=== PATIENT | female | born 1995 | race Caucasian/White ===

== ENCOUNTER 2019-11-01 14:36 | Emergency (ER) | payer SELFPAY ==
[2019-11-01 14:43] VITALS: BP 130/78; PULSE 107; RESP 17; TEMP 36.6; O2SAT 99; BMI 27.4
--- NOTE | 2019-11-01 15:14 | W.ED.GENADLT ---
HPI - General Adult General: Chief complaint: General Medical Stated complaint: SPIDER BITE Time Seen by Provider: 11/01/19 14:44 History of Present Illness: HPI narrative: Patient noticed what she believes to be a spider bite on the posterior aspect of her right thigh. Tiny eschar in the center is 1 mm in diameter there is a 5 and half centimeter diameter area of erythema and warmth consistent with cellulitis. Onset (ago): hour(s) Location: lower extremity Radiation: non-radiation Severity: mild Relieving factors: none Exacerbating factors: none Associated symptoms: Reports no associated symptoms Review of Systems General: Reports: 10 or more systems reviewed and unremarkable except in HPI and below PFSH ED PFSH: Social History Smoking and tobacco status: former smoker Physical Exam Const: COMMON NORMALS: no acute distress, healthy appearing and well nourished GENERAL APPEARANCE: cooperative and well developed HENMT: COMMON NORMALS: normocephalic and atraumatic HEAD & SCALP: normal to inspection, normocephalic and atraumatic Eye: GENERAL EYE: appearance normal, both eyes and all related structures Neck/C-Spine: COMMON NORMALS: full ROM, no lymphadenopathy and no meningeal signs GENERAL: Yes normal visual inspection CERVICAL SPINE: Yes cervical ROM normal and Yes normal cervical lordosis Chest: COMMONS NORMALS: normal inspection of the chest and normal palpation of entire chest wall Resp: COMMON NORMALS: normal respiratory effort, clear to auscultation bilaterally and percussion normal AUSCULTATION: clear to auscultation bilaterally PERCUSSION: percussion normal Cardio: COMMON NORMALS: regular rate, regular rhythm, S1 normal heart sound present and S2 normal heart sound present JUGULAR VENOUS DISTENTION: no JVD PALPATION: normal PMI RATE: regular rate RHYTHM: regular rhythm HEART SOUNDS: S1 normal heart sound present and S2 normal heart sound present GI: COMMON NORMALS: Soft to palpation and No hepatosplenomegaly present INSPECTION: Yes normal to inspection PALPATION: Yes Soft to palpation and Yes No hepatosplenomegaly present PERCUSSION: normal to percussion : COMMON NORMALS: Yes no CVA tenderness BLADDER/KIDNEY EXAM: Yes no CVA tenderness Back/Pelvis: COMMON NORMALS: no CVA tenderness, thoracic and lumbar spine normal to inspection and thoraco-lumbar ROM normal Extremity: COMMON NORMALS: normal to inspection, full ROM and capillary refill normal Neuro: MENINGEAL SIGNS: Yes no meningeal signs Skin: COMMON NORMALS: turgor normal GENERAL SKIN EXAM: elasticity normal and turgor normal LESIONS: lesion noted (spider bite posterior right thigh) RASHES: no rashes TRAUMA: no lacerations or abrasions HAIR: normal NAILS: normal Course Vital Signs: Vital signs: Vital Signs Temperature 97.8 F 11/01/19 14:43 Pulse Rate 107 H 11/01/19 14:43 Respiratory Rate 17 11/01/19 14:43 Blood Pressure 130/78 11/01/19 14:43 Pulse Oximetry 99 11/01/19 14:43 Discharge Plan Discharge Patient Disposition: Home, Self-Care Clinical Impression: Spider bite Qualifiers: Encounter type: initial encounter Injury intent: undetermined intent Qualified Code(s): T63.304A - Toxic effect of unspecified spider venom, undetermined, initial encounter Cellulitis Qualifiers: Site of cellulitis: extremity Site of cellulitis of extremity: lower extremity Laterality: right Qualified Code(s): L03.115 - Cellulitis of right lower limb Condition: Stable Prescriptions: New Augmentin 875-125 mg tablet 1 tab PO BID Qty: 20 RF: 0 Discharge Orders: Discharge Order (Routine); Ordered 11/01/19 Ordered By: Parish Flores Referrals: Fracisco Loza MD [Primary Care Provider] - Coding Level of Care Code ED [place] [employer] Supervisor for Chg Fwd Exam Comprehensive
[2019-11-01] MEDS: ceFAZolin 1,000 mg SDV 1000 MG IM (15:41)
[2019-11-01 16:09] VITALS: BP 112/70; PULSE 77; RESP 19; O2SAT 99
== END 2019-11-01 16:12 | disposition home or self-care (01) ==
PROVIDERS: Emergency Provider Family Medicine; Family Provider Family Medicine; PCP Family Medicine
DX: T63.301A Toxic effect of unspecified spider venom, accidental (unintentional), initial encounter (principal); L03.115 Cellulitis of right lower limb; Z87.891 Personal history of nicotine dependence
CPT/HCPCS: 12345; 96372; 99281; 99283; J0690

== ENCOUNTER → 2020-01-28 12:22 | Outpatient (BNVA) | payer OTHER, SELFPAY | PROVIDERS: Family Provider Family Medicine; PCP Family Medicine; Visit Provider Nurse Practitioner Family | DX: J06.9 Acute upper respiratory infection, unspecified (principal); Z11.59 Encounter for screening for other viral diseases | CPT/HCPCS: 87635 ==

== ENCOUNTER → 2020-05-16 15:26 | Outpatient (BNVA) | payer SELFPAY | PROVIDERS: Family Provider Family Medicine; PCP Family Medicine; Visit Provider Nurse Practitioner Family | DX: Z20.828 Contact with and (suspected) exposure to other viral communicable diseases (principal); J06.9 Acute upper respiratory infection, unspecified | CPT/HCPCS: 87635 ==

== ENCOUNTER 2020-10-30 17:50 | Emergency (ER) | payer SELFPAY ==
[2020-10-30 18:03] VITALS: BP 151/85; PULSE 124; RESP 16; TEMP 36.6; O2SAT 96; BMI 30.5
[2020-10-30 19:08] LABS: Basophils # 0.1 10^3/uL (0.0-0.1); Basophils % 0.6 %; Eosinophils # 0.1 10^3/uL (0.0-0.8); Eosinophils % 0.9 %; Hemoglobin 12.8 g/dL (11.5-15.3); Lymphocytes # 2.2 10^3/uL (0.8-4.8); Lymphocytes % 19.2 %; Mean Corpuscular HGB Conc 33.7 g/dL (30.0-36.0); Mean Corpuscular Hemoglobin 30.5 pg (28.0-34.0); Mean Corpuscular Volume 90.7 fL (81-99); Mean Platelet Volume 8.7 fL (7.4-10.4); Monocytes # 0.7 10^3/uL (0.2-0.9); Monocytes % 5.7 %; Neutrophils # 8.56 10^3/uL (1.8-7.7); Neutrophils % 73.3 %; Nucleated Red Blood Cells % 0 %; Platelet Count 395 10^3/cmm (130-400); Red Blood Count 4.19 10^6/uL (4.1-5.3); Red Cell Distribution Width 11.6 % (12.1-15.1); White Blood Count 11.7 10^3/uL (4.0-10.0)
== END 2020-10-30 20:04 ==
LOC: ER 17:58
PROVIDERS: Emergency Medicine; PCP Family Medicine
DX: Z53.21 Procedure and treatment not carried out due to patient leaving prior to being seen by health care provider (principal)
CPT/HCPCS: 36415; 84702; 85025; 86850; 86900

== ENCOUNTER 2020-10-30 22:09 | Emergency (ER) | payer SELFPAY ==
--- NOTE | 2020-10-30 22:13 | USR_ITS ---
PROCEDURE INFORMATION: Exam: US , Limited Exam date and time: 10/30/2020 10:13 PM Age: 24 years old Clinical indication: complicated by abdominal or pelvic pain; Lower; First trimester; Gestational age or lmp: No fetus seen; ; Patient HX: PT bleeding heavily and passing large clots. Ser pg semi-qnt tonite here is 760.8 miu/ml; Additional info: Threatened miscariage TECHNIQUE: Imaging protocol: Real-time ultrasound of the maternal uterus with image documentation. Exam focused on the clinical indication. COMPARISON: US [facility] [place] OB > 14 weeks 01/18/2015 3:31 PM FINDINGS: Gestation: There is no evidence for an intrauterine gestation. MATERNAL: Uterus: The uterus measures 9.1 x 4.8 x 5.8 cm. The endometrial stripe measures 1.8 cm. There is heterogeneous material seen within the endometrial and endocervical canal possibly representing blood clots and/or debris. The patient has a positive seen quantitative beta HCG level of 761 mIU units per mL. These findings suggest a spontaneous in progress. Cervix: The cervix is open and measures 3 cm in length, the endocervical canal measures 1.7 cm. Right adnexa: The right ovary measures 1.5 x 2.0 x 2.0 cm. Vascular flow is demonstrated within the right ovary with color Doppler and duplex waveform sonography. PSV 26.1 cm/s, RI 0.62. Left adnexa: Left ovary measures 2.3 x 2.0 x 2.7 cm. Vascular flow is demonstrated within the left ovary with color Doppler and duplex waveform sonography. PSV 48.6 cm/s, RI 0.41. US/US OB lmt with transvaginal IMPRESSION: Clotted blood and debris present within the a dilated endometrial and endocervical canal, findings suggesting spontaneous in progress.
[2020-10-30 22:46] LABS: Basophils # 0.1 10^3/uL (0.0-0.1); Basophils % 0.4 %; Eosinophils % 0.3 %; Hematocrit 33.7 % (37.0-47.0); Hemoglobin 11.3 g/dL (11.5-15.3); Lymphocytes # 1.4 10^3/uL (0.8-4.8); Lymphocytes % 9.6 %; Mean Corpuscular HGB Conc 33.5 g/dL (30.0-36.0); Mean Corpuscular Hemoglobin 30.9 pg (28.0-34.0); Mean Corpuscular Volume 92.1 fL (81-99); Monocytes # 0.6 10^3/uL (0.2-0.9); Monocytes % 3.9 %; Neutrophils # 12.41 10^3/uL (1.8-7.7); Neutrophils % 85.5 %; Nucleated Red Blood Cells % 0 %; Platelet Count 357 10^3/cmm (130-400); Red Blood Count 3.66 10^6/uL (4.1-5.3); Red Cell Distribution Width 11.7 % (12.1-15.1); White Blood Count 14.5 10^3/uL (4.0-10.0)
[2020-10-30 23:26] VITALS: BP 116/80; PULSE 99; RESP 18; TEMP 36.4; O2SAT 99; BMI 29.7
[2020-10-31] MEDS: sodium chloride 0.9% 1,000 ML 999 ML IV (00:56)
[2020-10-31] MEDS: miSOPROStol 200 mcg Tablet 600 MCG PO (00:56)
[2020-10-31] MEDS: ondansetron 2 mg/ML SDV 2 mL 4 MG IVP (00:59)
[2020-10-31] MEDS: morphine 4 mg/mL SDV 1 mL IVP (01:00)
--- NOTE | 2020-10-31 01:00 | ED_ITS ---
HPI - Female Genitourinary General: Chief complaint: Vaginal Bleeding Stated complaint: PASSING OUT Time Seen by Provider: 10/31/20 00:48 Source: patient Mode of arrival: ambulatory Limitations: no limitations History of Present Illness: HPI Narrative: 24-year-old female who states that she had tested positive for 2 weeks ago. States she started having heavy bleeding today. States she is passed multiple clots and having lower abdominal cramping. She states she has felt lightheaded as well. She denies any worse improving factors. Denies any fevers. This is her second she had no problems with her first . Associated symptoms: Deny abdominal pain, headache(s) or nausea Review of Systems Const: Denies: fever(s), chills, body aches or change in appetite Eyes: Denies: blurry vision or eye discomfort ENMT: Denies: throat pain or dental pain Card: Denies: chest pain Resp: Denies: dyspnea GI: Denies: abdominal pain, nausea, vomiting or diarrhea : Reports: vaginal bleeding Musc: Denies: neck pain or back pain Skin/Breast: Denies: rash Neuro: Denies: headache(s) Psych: Denies: depression Jed/Lymph: Denies: easy bruising All/Imm: Denies: urticaria PFSH ED PFSH: Social History Smoking and tobacco status: former smoker Physical Exam Const: COMMON NORMALS: no acute distress, patient oriented x3 and healthy appearing HENMT: COMMON NORMALS: normocephalic and atraumatic HEAD & SCALP: normocephalic and atraumatic Eye: COMMON NORMALS: Equal, round and reactive pupils present and EOMs intact bilaterally PUPIL: Yes Equal, round and reactive pupils present Neck/C-Spine: COMMON NORMALS: full ROM and supple Chest: COMMONS NORMALS: normal inspection of the chest and normal palpation of entire chest wall Resp: COMMON NORMALS: normal respiratory effort, No retractions, No use of accessory muscles and clear to auscultation bilaterally AUSCULTATION: clear to auscultation bilaterally Cardio: COMMON NORMALS: regular rate, regular rhythm and No murmurs present (Cardio) RATE: regular rate RHYTHM: regular rhythm GI: COMMON NORMALS: Normal to inspection, nondistended, normoactive bowel sounds present, Soft to palpation, non-tender and no masses PALPATION: Yes Soft to palpation : OTHER: Large blood clot stuck in the cervix that was removed with forceps. Minimal bleeding after the clot was removed Extremity: COMMON NORMALS: normal to inspection and full ROM Neuro: COMMON NORMALS: patient oriented x3, moves all extremities and no focal motor deficits Psych: COMMON NORMALS: mental status grossly normal, Normal thought process present and cooperative THOUGHT PROCESS: Normal thought process present Skin: COMMON NORMALS: no rashes or lesions noted and no wounds GENERAL SKIN EXAM: no rashes or lesions noted Course Vital Signs: Vital signs: Vital Signs Temperature 97.6 F 10/30/20 23:26 Pulse Rate 75 10/31/20 01:57 Respiratory Rate 18 10/31/20 01:57 Blood Pressure 125/85 10/31/20 01:57 Pulse Oximetry 98 10/31/20 01:57 MDM - Female MDM Narrative: Medical decision making narrative: Patient presents here with likely miscarriage. Was able to remove the clot from the cervix. Her bleeding is since stopped. Her hemoglobin here is stable and her vital signs are stable. She is to follow-up with PCP in 2 to 4 days return if worsening. She understands agrees to plan. Lab Data: Labs: Lab Results 10/30/20 10/31/20 Range/Units 22:29 01:55 WBC 14.5 H (4.0-10.0) 10^3/ uL RBC 3.66 L (4.1-5.3) 10^6/u L Hgb 11.3 L 11.1 L (11.5-15.3) g/dL Hct 33.7 L 32.9 L (37.0-47.0) % MCV 92.1 (81-99) fL MCH 30.9 (28.0-34.0) pg MCHC 33.5 (30.0-36.0) g/dL RDW 11.7 L (12.1-15.1) % Plt Count 357 (130-400) 10^3/c mm MPV 9.0 (7.4-10.4) fL Neut % (Auto) 85.5 % Lymph % (Auto) 9.6 % [place] % (Auto) 3.9 % Eos % (Auto) 0.3 % Baso % (Auto) 0.4 % Neut # (Auto) 12.41 H (1.8-7.7) 10^3/u L Lymph # (Auto) 1.4 (0.8-4.8) 10^3/u L [place] # (Auto) 0.6 (0.2-0.9) 10^3/u L Eos # (Auto) 0.0 (0.0-0.8) 10^3/u L Baso # (Auto) 0.1 (0.0-0.1) 10^3/u L Nucleated RBC % (a uto) 0 % Nucleated RBCs # 0.0 /100WBC Imaging Data: US OB: Attestation: I personally reviewed and interpreted this imaging study as follows: Radiologist's impression: [address] [address] Ultrasound Report Signed with Addenda Patient: Felecia Figueroa Unit #: [id number] : 1995 Age/Sex: 24 / F ADM Date: 10/30/20 Loc: ER Room/Bed: Attending Dr: Ordering Provider/Ordering MD: Liu Rodas MD Date of Service: 10/30/20 Procedure(s): US OB lmt with transvaginal Accession Number(s): [id number] Report Number: [id number] ADDENDUM US/US OB lmt with transvaginal CRITICAL RESULT: THIS REPORT CONTAINS FINDINGS THAT MAY BE CRITICAL TO PATIENT CARE. The findings were verbally communicated via telephone conference with LIU Jean at 12:40 AM CDT on 10/31/2020. The findings were acknowledged and understood. Addendum Dictated By: Billy Barber MD Addendum Signed By: Billy Barber MD Signed Date/Time: 10/31/2040 Addendum Cosigned By: PROCEDURE INFORMATION: Exam: US , Limited Exam date and time: 10/30/2020 10:13 PM Age: 24 years old Clinical indication: complicated by abdominal or pelvic pain; Lower; First trimester; Gestational age or lmp: No fetus seen; ; Patient HX: PT bleeding heavily and passing large clots. Ser pg semi-qnt tonite here is 760.8 miu/ml; Additional info: Threatened miscariage TECHNIQUE: Imaging protocol: Real-time ultrasound of the maternal uterus with image documentation. Exam focused on the clinical indication. [place]: [place] [facility] [place] 14 weeks [place]18/2015 3:31 PM FINDINGS: Gestation: There is no evidence for an intrauterine gestation. MATERNAL: Uterus: The uterus measures 9.1 x 4.8 x 5.8 cm. The endometrial stripe measures 1.8 cm. There is heterogeneous material seen within the endometrial and endocervical canal possibly representing blood clots and/or debris. The patient has a positive seen quantitative beta HCG level of 761 mIU units per mL. These findings suggest a spontaneous in progress. Cervix: The cervix is open and measures 3 cm in length, the endocervical canal measures 1.7 cm. Right adnexa: The right ovary measures 1.5 x 2.0 x 2.0 cm. Vascular flow is demonstrated within the right ovary with color Doppler and duplex waveform sonography. PSV 26.1 cm/s, RI 0.62. Left adnexa: Left ovary measures 2.3 x 2.0 x 2.7 cm. Vascular flow is demonstrated within the left ovary with color Doppler and duplex waveform sonography. PSV 48.6 cm/s, RI 0.41. US/US OB lmt with transvaginal IMPRESSION: Clotted blood and debris present within the a dilated endometrial and endocervical canal, findings suggesting spontaneous in progress. Dictated By: Billy Barber MD Signed By: Billy Barber MD Signed Date/Time: 10/31/20 0038 Discharge Plan Discharge Patient Disposition: Home Clinical Impression: Incomplete Condition: Stable Prescriptions: No Action omeprazole 40 mg capsule,delayed release(DR/EC) 40 mg PO DAILY Qty: 14 RF: 0 Discharge Orders: Discharge ED (Routine); Ordered 10/31/20 Ordered By: Liu Rodas Referrals: Fracisco Loza MD [Primary Care Provider] - Discharge Diet: Advance as tolerated Discharge Activity: Resume usual activity Patient Instructions: Spontaneous Miscarriage (ED) Coding Level of Care Code ED [facility] Manager for Chg Fwd Exam Comprehensive
[2020-10-31 01:01] VITALS: BP 124/93; PULSE 94; RESP 16; O2SAT 100
[2020-10-31 01:57] VITALS: BP 125/85; PULSE 75; RESP 18; O2SAT 98
[2020-10-31 01:58] LABS: Hematocrit 32.9 % (37.0-47.0); Hemoglobin 11.1 g/dL (11.5-15.3)
[2020-10-31 02:26] VITALS: BP 114/75; PULSE 88; RESP 18; O2SAT 98
== END 2020-10-31 02:27 | disposition home or self-care (01) ==
PROVIDERS: Emergency Provider Emergency Medicine; PCP Family Medicine
DX: O03.4 Incomplete spontaneous abortion without complication (principal); Z87.891 Personal history of nicotine dependence
CPT/HCPCS: 36415; 76815; 76817; 85014; 85018; 85025; 96361; 96374; 96375; 99283; E0352; J2270; J2405; J7030

== ENCOUNTER → 2021-01-13 12:15 | Outpatient (BNVA) | payer SELFPAY | PROVIDERS: PCP Family Medicine; Visit Provider Nurse Practitioner Family | DX: Z20.822 Contact with and (suspected) exposure to COVID-19 (principal) | CPT/HCPCS: 87426 ==

== ENCOUNTER 2022-07-12 07:33 | Emergency (ER) | payer SELFPAY ==
[2022-07-12 07:45] VITALS: BP 150/101; PULSE 105; RESP 16; TEMP 37; O2SAT 99; BMI 29.0
--- NOTE | 2022-07-12 07:45 | PC.NURSE ---
PT ARRIVES TO ED DUE TO FALL AND INJURY OF RIGHT WRIST. PT STATES SHE FELL BACKWARDS AND HURT HER WRIST. PT ARRIVES WITH SOME OBVIOUS DEFORMITY TO RIGHT WRIST ACCOMPANIED BY SWELLING. DISTAL COLOR IS NORMAL. RIGHT RADIAL PULSE PRESENT. CAP REFILL BRISK
--- NOTE | 2022-07-12 07:51 | XR_ITS ---
WS: [id number] Exam: XR forearm RT 2V [id number] Date/Time of Exam: 07/12/2022 7:55 AM Reason For Exam: fall with pain and swelling There is a transverse nondisplaced fracture of the distal radius. The ulna is intact. Soft tissues ar e unremarkable. XR/XR forearm RT 2V [id number] IMPRESSION: 1. Nondisplaced fracture of the distal radius.
--- NOTE | 2022-07-12 07:51 | XR_ITS ---
WS: [id number] Exam: XR wrist RT min 3V* [id number] Date/Time of Exam: 07/12/2022 7:55 AM Reason For Exam: fall with wrist pain There is a transverse nondisplaced fracture of the distal radius. There is also a cortical buckling f racture at the base of the ulnar styloid which is nondisplaced. No dislocation. Normal soft tissues. XR/XR wrist RT min 3V* [id number] IMPRESSION: 1. Nondisplaced fractures of the distal radius and ulna.
[2022-07-12 08:11] VITALS: BP 150/101; PULSE 108; RESP 23; O2SAT 100
[2022-07-12] MEDS: HYDROcodone-acetaminophen 5-325 mg Tablet 1 TAB PO (08:28)
--- NOTE | 2022-07-12 08:43 | ED_ITS ---
Documented by User: JOSE ELIAS Bee 07/12/22 09:09 HPI - Extremity Problem General: Chief complaint: Extremity Injury, Upper Stated complaint: Right wrist injury Time Seen by Provider: 07/12/22 07:37 History of Present Illness: Patient is in for right wrist injury. She reports that she slipped on her deck this morning and fell onto her right hand outstretched. She reports significant pain at the distal forearm wrist level. Patient reports that she is up-to-date on tetanus vaccination within the past 1 to 2 years Associated symptoms: Deny chest pain or fever(s) Review of Systems Const: Denies: fever(s) or chills Card: Denies: chest pain or palpitations Resp: Denies: dyspnea, productive cough or non-productive cough GI: Denies: abdominal pain, nausea or vomiting Musc: Reports: extremity pain and joint pain COUNT INCLUDES THE [facility] ED PFSH: Social History Smoking and tobacco status: former smoker Physical Exam Const: COMMON NORMALS: patient oriented x3 and alert OTHER: Patient is in obvious pain Neck/C-Spine: COMMON NORMALS: no JVD Resp: COMMON NORMALS: normal respiratory effort, No use of accessory muscles and clear to auscultation bilaterally AUSCULTATION: clear to auscultation bilaterally Cardio: COMMON NORMALS: no JVD, regular rate, regular rhythm, S1 normal heart sound present, S2 normal heart sound present and No murmurs present (Cardio) RATE: regular rate RHYTHM: regular rhythm HEART SOUNDS: S1 normal heart sound present and S2 normal heart sound present Extremity: NARRATIVE EXTREMITY EXAM: Swelling noted radial aspect right wrist distal forearm. No obvious bony deformity is appreciated. There is tenderness to palpation distal forearm. Patient is still able to flex and extend fingers. Color and sensation are intact. Radial and ulnar pulses are intact. Neuro: COMMON NORMALS: patient oriented x3 SENSORIUM/ORIENTATION: Yes alert Course ED course: Recheck after splinted?CSM within normal limits to distal fingers. Patient reports that pain improved. Vital Signs: Vital signs: Vital Signs Temperature 98.6 F 07/12/22 07:45 Pulse Rate 98 07/12/22 09:03 Respiratory Rate 18 07/12/22 09:03 Blood Pressure 115/82 07/12/22 09:03 Pulse Oximetry 98 07/12/22 09:03 Oxygen Delivery Me thod 07/12/22 07:45 MDM - Extremity (Nontraumatic) Medical Decision Making Differentials include wrist sprain versus wrist fracture versus contusion X-ray 2 view forearm wet read: Fracture distal radius X-ray 3 view wrist wet read: Fracture distal radius and distal ulna Radiologist review: Nondisplaced fractures of the distal radius and ulna splint patient in sugar-tong splint. Orders placed for case management to facilitate orthopedics referral. Consulted with Dr. Jo for outpatient pain control. Hydrocodone 5/325 1 p.o. every 6 hours as needed pain #12 no refills. Advised patient of splint care. Advised patient of conservative treatment at home. Follow-up with primary care provider. Return to the ER as needed for new or worsening symptoms. Lab Data Radiology Impressions Forearm X-Ray 07/12/22 07:51 IMPRESSION: 1. Nondisplaced fracture of the distal radius. Wrist X-Ray 07/12/22 07:51 IMPRESSION: 1. Nondisplaced fractures of the distal radius and ulna. Discharge Plan Discharge Patient Disposition: Home Clinical Impression: Fracture of distal end of right radius and ulna Qualifiers: Encounter type: initial encounter Fracture type: closed Qualified Code(s): S52.501A - Unspecified fracture of the lower end of right radius, initial encounter for closed fracture Condition: Stable Prescriptions: No Action No Known Home Medications Discharge Orders: Discharge ED (Routine); Ordered 07/12/22 Ordered By: Nhi Zamarripa Referrals: Fracisco Loza MD [Primary Care Provider] - Discharge Diet: Usual diet Discharge Activity: Limit activity as instructed Patient Instructions: Splint/Cast Care, Wrist Fracture in Adults (ED) Activity Restrictions/Additional Instructions: Keep splint clean and dry. Elevate the arm above the level of the heart. Ice, rest the extremity. Use pain medication prescribed as needed as directed. Do not drive after taking pain medication. Do not drink alcohol with pain medication. Do not take any other medications that make you sleepy while taking the pain medication. follow-up with orthopedics. Return to the ER as needed for new or worsening symptoms. Coding Level of Care Code ED Route Delivery Clerk for Titi Fwd Documented by User: Rick Jo DO 07/12/22 09:20 HPI - Extremity Problem General: Chief complaint: Extremity Injury, Upper Stated complaint: Right wrist injury Time Seen by Provider: 07/12/22 07:37 PFSH ED PFSH: Social History Smoking and tobacco status: former smoker Course Vital Signs: Vital signs: Vital Signs Temperature 98.6 F 07/12/22 07:45 Pulse Rate 98 07/12/22 09:03 Respiratory Rate 18 07/12/22 09:03 Blood Pressure 115/82 07/12/22 09:03 Pulse Oximetry 98 07/12/22 09:03 Oxygen Delivery Me thod 07/12/22 07:45 MDM - Extremity (Nontraumatic) Medical Decision Making Differentials include wrist sprain versus wrist fracture versus contusion X-ray 2 view forearm wet read: Fracture distal radius X-ray 3 view wrist wet read: Fracture distal radius and distal ulna Radiologist review: Nondisplaced fractures of the distal radius and ulna splint patient in sugar-tong splint. Orders placed for case management to facilitate orthopedics referral. Consulted with Dr. Jo for outpatient pain control. Hydrocodone 5/325 1 p.o. every 6 hours as needed pain #12 no refills. Advised patient of splint care. Advised patient of conservative treatment at home. Follow-up with primary care provider. Return to the ER as needed for new or worsening symptoms. Chart reviewed and patient discussed with midlevel. Agree with assessment and plan. Nondisplaced distal radius fracture splinted refer to Ortho Lab Data Radiology Impressions Forearm X-Ray 07/12/22 07:51 IMPRESSION: 1. Nondisplaced fracture of the distal radius. Wrist X-Ray 07/12/22 07:51 IMPRESSION: 1. Nondisplaced fractures of the distal radius and ulna. Discharge Plan Discharge Patient Disposition: Home Clinical Impression: Fracture of distal end of right radius and ulna Qualifiers: Encounter type: initial encounter Fracture type: closed Qualified Code(s): S52.501A - Unspecified fracture of the lower end of right radius, initial en counter for closed fracture Condition: Stable Prescriptions: No Action No Known Home Medications Discharge Orders: Discharge ED (Routine); Ordered 07/12/22 Ordered By: Nhi Zamarripa Referrals: Fracisco Loza MD [Primary Care Provider] - Discharge Diet: Usual diet Discharge Activity: Limit activity as instructed Patient Instructions: Splint/Cast Care, Wrist Fracture in Adults (ED) Activity Restrictions/Additional Instructions: Keep splint clean and dry. Elevate the arm above the level of the heart. Ice, rest the extremity. Use pain medication prescribed as needed as directed. Do not drive after taking pain medication. Do not drink alcohol with pain medication. Do not take any other medications that make you sleepy while taking the pain medication. follow-up with orthopedics. Return to the ER as needed for new or worsening symptoms. Coding Level of Care Code ED Route Delivery Clerk for Titi Ramirez
[2022-07-12 09:03] VITALS: BP 115/82; PULSE 98; RESP 18; O2SAT 98
--- NOTE | 2022-07-12 09:25 | DCPLANNER ---
Addendum entered by Bridgett Kohler 08/01/22 10:51: Patient had a follow up appointment scheduled with ortho - patient did attend appointment. Addendum entered by Bridgett Kohler 07/27/22 08:54: manager recruiting received the following message from the ortho clinic regarding follow up appointment: attempt made to contact patient - left vm and mailed letter to contact our clinic to schedule w/ dr estrada Original Note: manager recruiting had message to schedule a follow up appointment for patient with ortho. manager recruiting sent patients information to the front office staff at ortho. Patients information will be printed and reviewed. Clinic will call patient with appointment information.
== END 2022-07-12 09:15 | disposition home or self-care (01) ==
PROVIDERS: Emergency Provider Nurse Practitioner Family; PCP Family Medicine
DX: S52.501A Unspecified fracture of the lower end of right radius, initial encounter for closed fracture (principal); S52.601A Unspecified fracture of lower end of right ulna, initial encounter for closed fracture; Z87.891 Personal history of nicotine dependence; W01.0XXA Fall on same level from slipping, tripping and stumbling without subsequent striking against object, initial encounter
CPT/HCPCS: 29125; 73090; 73110; 99283; A4590

== ENCOUNTER → 2022-07-19 11:00 | Outpatient (BNVA) | payer SELFPAY | PROVIDERS: PCP Family Medicine; Visit Provider Student in an Organized Health Care Education/Training Program | DX: S52.501A Unspecified fracture of the lower end of right radius, initial encounter for closed fracture (principal); W17.89XA Other fall from one level to another, initial encounter | CPT/HCPCS: 73110 ==

== ENCOUNTER 2022-07-19 15:03 | Outpatient (CLI) | payer SELFPAY | END 2022-07-19 15:04 | disposition home or self-care (01) | LOC: SPT 15:03 | PROVIDERS: PCP Family Medicine; Visit Provider Student in an Organized Health Care Education/Training Program | DX: Z46.89 Encounter for fitting and adjustment of other specified devices (principal); S52.591D Other fractures of lower end of right radius, subsequent encounter for closed fracture with routine healing; X58.XXXD Exposure to other specified factors, subsequent encounter | CPT/HCPCS: 97760; L3982 ==

== ENCOUNTER 2024-10-03 23:52 | Emergency (ER) | payer MEDICAID, SELFPAY ==
[2024-10-04 00:07] VITALS: BP 117/84; PULSE 108; RESP 20; TEMP 36.6; O2SAT 98; BMI 31.3
--- NOTE | 2024-10-04 00:37 | XRR_ITS ---
PROCEDURE INFORMATION: Exam: XR Left Knee Exam date and time: 10/04/2024 12:55 AM Age: 28 years old Clinical indication: Injury or trauma; Fall; Blunt trauma; Knee; Left; Patient fell outside on ground while playing with son. C/O diffuse pain with worsening pain upon flexion. ; Additional info: Fall, pain, swelling, with sunrise view TECHNIQUE: Imaging protocol: Radiologic exam of the left knee. Views: 3 views. COMPARISON: No relevant prior studies available. FINDINGS: Bones/joints: Small knee joint effusion with possible hemarthrosis. Consider CT scan to exclude occult fracture. No definite radiographically evident fracture Soft tissues: Normal. XR/XR knee LT 3V* [id number] IMPRESSION: Small knee joint effusion with possible hemarthrosis. Consider CT scan to exclude occult fracture.
--- NOTE | 2024-10-04 01:01 | W.ED.EXTPRO ---
HPI - Extremity Problem General: Chief complaint: Extremity Injury, Lower Stated complaint: fall Left side scraped knee injured Time Seen by Provider: 10/04/24 00:30 Source: patient Mode of arrival: wheelchair Limitations: no limitations History of Present Illness: Patient is a 28-year-old female that presents to the emergency department with an injury to the left knee. She states she was playing with her son outside when she tripped and fell injuring the knee. She also reports abrasions on her left forearm. She is unsure of her last tetanus immunization but refuses a vaccination here today. Risk of tetanus infection were explained to the patient but she again declined. She also declines any pain medications here. She states the pain is worse when she bears weight on the knee. Patient denies and states she is currently menstruating. She presents to the emergency department for further evaluation and treatment. Associated symptoms: Deny chest pain or fever(s) Related Data Previous Rx's ?Medication ?Instructions ?Recorded naproxen 500 mg tablet 500 mg PO Q12H PRN pain #10 tabs 10/04/24 Allergies Allergy/AdvReac Type Severity Reaction Status Date / Time No Known Allergies Allergy Verified 02/01/23 09:20 Review of Systems General: Reports: 10 or more systems reviewed and unremarkable except in HPI and below Const: Denies: fever(s) or chills Eyes: Denies: change in vision ENMT: Denies: throat pain or dental pain Card: Denies: chest pain Resp: Denies: dyspnea, productive cough, non-productive cough or wheezing GI: Denies: abdominal pain, nausea or vomiting : Denies: flank pain, difficulty voiding or dysuria Musc: Reports: extremity pain (Left knee), joint pain (Left knee) and joint swelling (Left knee) Skin/Breast: Reports: other (Abrasions to left forearm) Neuro: Denies: headache(s) or sensory changes Psych: Denies: anxiety Endo: Denies: polyuria or polydipsia Jed/Lymph: Denies: easy bruising or petechiae All/Imm: Denies: urticaria, throat swelling or tongue swelling [facility] ED PFSH: Medical History (Updated 10/04/24 @ 01:14 by RONALD Jones) Distal radius fracture, right Social History (Reviewed 10/04/24 @ 01:04 by STEPHON Jones Smoking and tobacco/nicotine status: former use of tobacco/nicotine Physical Exam Const: COMMON NORMALS: no acute distress and alert GENERAL APPEARANCE: cooperative ORIENTATION/CONSCIOUSNESS: Yes awake HENMT: COMMON NORMALS: normocephalic, atraumatic, external ears normal and Normal external nose present HEAD & SCALP: normocephalic and atraumatic FACE & SINUS: normal facial exam NOSE: Normal external nose present EXTERNAL EAR: Yes external ears normal Eye: COMMON NORMALS: conjunctivae normal CONJUNCTIVA: Yes conjunctivae normal Neck/C-Spine: COMMON NORMALS: full ROM GENERAL: No tender Resp: COMMON NORMALS: normal respiratory effort and clear to auscultation bilaterally EFFORT & INSPECTION: Yes able to speak in complete sentences AUSCULTATION: clear to auscultation bilaterally, no crackles, no rales, no rhonchi and no wheezes Cardio: COMMON NORMALS: regular rate and regular rhythm RATE: regular rate RHYTHM: regular rhythm Back/Pelvis: COMMON NORMALS: thoracic and lumbar spine normal to inspection and no thoracic nor lumbar tenderness Extremity: COMMON NORMALS: full ROM, no calf tenderness and no pedal edema LEFT UPPER EXTREMITY: Yes lower arm (Multiple superficial abrasions. No active bleeding) LEFT LOWER EXTREMITY: No hip joint (No acute findings), Yes knee joint (Tenderness to palpation of the anterior knee. Mild swelling) Left knee: Yes ROM and No ankle joint (No acute findings) Neuro: COMMON NORMALS: moves all extremities SENSORIUM/ORIENTATION: Yes alert Psych: COMMON NORMALS: cooperative ATTITUDE: Yes calm Skin: GENERAL SKIN EXAM: other (Abrasions to left forearm) Course Vital Signs: Vital signs: Vital Signs Temperature 97.8 F 10/04/24 00:07 Pulse Rate 108 H 10/04/24 00:07 Respiratory Rate 20 H 10/04/24 00:07 Blood Pressure 117/84 10/04/24 00:07 Pulse Oximetry 98 10/04/24 00:07 Oxygen Delivery Me thod Room Air 10/04/24 00:07 MDM - Extremity (Nontraumatic) Medical Decision Making Patient was advised of the exam and imaging findings. The patient does have some abrasions to the left forearm but declines a tetanus immunization at this time. The radiology results are pending but I did not see any obvious fractures of the knee. The patient was advised that she will be notified of any discrepancies when the radiologist reads the film. I did recommend that she use crutches as directed since she cannot bear weight on the knee without severe pain. She was advised she will need to follow-up with a primary care provider for further evaluation and treatment. The patient was placed in an Rachid wrap by the ER nurse to help stabilize the knee and provide some compression. I recommended that she return to the emergency department with any worsening symptoms. The patient expressed understanding. XR interpretation done by ED provider, pending radiology final review (No acute fracture. Awaiting radiologist interpretation.) Critical Care Time Critical Care Time: Critical Care Time: No Discharge Plan Discharge Patient Disposition: Home Clinical Impression: Left knee sprain Qualifiers: Encounter type: initial encounter Involved ligament of knee: unspecified ligament Qualified Code(s): S83.92XA - Sprain of unspecified site of left knee, initial encounter Abrasion of forearm, left Qualifiers: Encounter type: initial encounter Qualified Code(s): S50.812A - Abrasion of left forearm, initial encounter Fall from slip, trip, or stumble Qualifiers: Encounter type: initial encounter Qualified Code(s): W01.0XXA - Fall on same level from slipping, tripping and stumbling without subsequent striking against object, initial encounter Contusion of knee, left Qualifiers: Encounter type: initial encounter Qualified Code(s): S80.02XA - Contusion of left knee, initial encounter Condition: Stable Prescriptions: New naproxen 500 mg tablet 500 mg PO Q12H PRN (Reason: pain) Qty: 10 0RF Discharge Orders: Discharge ED (Routine); Ordered 10/04/24 Ordered By: Gilberto Leiva Discharge Diet: Usual diet Discharge Activity: Limit activity as instructed Patient Instructions: Opioid Safety, Pain Management, Knee Pain (ED) Activity Restrictions/Additional Instructions: Take medications as directed. Your prescriptions were sent electronically to your preferred pharmacy. Ice the knee 20 minutes at a time, 5 times throughout the day as needed for pain or swelling. Use the crutches as directed for the next 2 to 3 days then advance weightbearing as tolerated. Use the Rachid wrap as directed. Follow-up with your doctor in 1 week for recheck. Return to the emergency department with any worsening symptoms. Print Language: Syriac Coding Level of Care Code ED Tappet Adjuster for Titi Ramirez
== END 2024-10-04 01:38 | disposition home or self-care (01) ==
PROVIDERS: Emergency Provider Physician Assistant
DX: S83.92XA Sprain of unspecified site of left knee, initial encounter (principal); S80.02XA Contusion of left knee, initial encounter; S50.812A Abrasion of left forearm, initial encounter; W01.0XXA Fall on same level from slipping, tripping and stumbling without subsequent striking against object, initial encounter; Z87.891 Personal history of nicotine dependence
CPT/HCPCS: 12345; 73562; 99283

== ENCOUNTER 2024-10-04 05:33 | Emergency (ER) | payer MEDICAID, SELFPAY ==
[2024-10-04 05:36] VITALS: BP 136/78; PULSE 123; RESP 18; TEMP 35.8; O2SAT 95; BMI 31.9
--- NOTE | 2024-10-04 06:50 | W.ED.EXTPRO ---
HPI - Extremity Problem General: Chief complaint: Extremity Injury, Lower Stated complaint: L knee pain gotten worse can't move it Time Seen by Provider: 10/04/24 06:46 Source: patient Mode of arrival: ambulatory Limitations: no limitations History of Present Illness: 28-year-old female who twisted her knee last night states she is outside in the dark playing her son fell she states that she was seen here last night had x-rays negative is had increasing pain and has not had any pain meds symptoms swelling that knee as well she rates her pain an 8 out of 10 currently she does have crutches denies any other injuries Associated symptoms: Deny chest pain, fever(s) or rash Related Data Previous Rx's ?Medication ?Instructions ?Recorded hydrocodone 5 mg-acetaminophen 325 1 tab PO Q6H PRN pain #14 tabs 10/04/24 mg tablet naproxen 500 mg tablet 500 mg PO Q12H PRN pain #10 tabs 10/04/24 Allergies Allergy/AdvReac Type Severity Reaction Status Date / Time No Known Allergies Allergy Verified 02/01/23 09:20 Review of Systems Const: Denies: fever(s), chills, body aches or change in appetite ENMT: Denies: throat pain or dental pain Card: Denies: chest pain Resp: Denies: dyspnea GI: Denies: abdominal pain, nausea, vomiting or diarrhea Musc: Reports: extremity pain; Denies: neck pain or back pain Skin/Breast: Denies: rash Neuro: Denies: headache(s) PFSH ED PFSH: Medical History Distal radius fracture, right Social History Smoking and tobacco/nicotine status: former use of tobacco/nicotine Female Reproductive History: Date of last menstrual period: 10/04/24 Physical Exam Const: COMMON NORMALS: no acute distress, patient oriented x3 and healthy appearing HENMT: COMMON NORMALS: normocephalic and atraumatic HEAD & SCALP: normocephalic and atraumatic Eye: COMMON NORMALS: conjunctivae normal CONJUNCTIVA: Yes conjunctivae normal Neck/C-Spine: COMMON NORMALS: full ROM and supple Chest: COMMONS NORMALS: normal inspection of the chest Resp: COMMON NORMALS: normal respiratory effort Cardio: COMMON NORMALS: regular rate RATE: regular rate Extremity: NARRATIVE EXTREMITY EXAM: Swelling noted to left knee along with tenderness no warmth to touch Neuro: COMMON NORMALS: patient oriented x3, moves all extremities and no focal motor deficits Psych: COMMON NORMALS: mental status grossly normal, Normal thought process present and cooperative THOUGHT PROCESS: Normal thought process present Skin: COMMON NORMALS: no rashes or lesions noted and no wounds GENERAL SKIN EXAM: no rashes or lesions noted Course Vital Signs: Vital signs: Vital Signs Temperature 96.4 F L 10/04/24 05:36 Pulse Rate 123 H 10/04/24 05:36 Respiratory Rate 18 10/04/24 05:36 Blood Pressure 136/78 10/04/24 05:36 Pulse Oximetry 95 10/04/24 05:36 Oxygen Delivery Me thod Room Air 10/04/24 05:36 MDM - Extremity (Nontraumatic) Medical Decision Making Patient presents for knee injury likely sprain or ligamentous injury her x-ray earlier showed no fracture we will place her in a knee immobilizer she is continue using crutches nonweightbearing we will prescribe her pain meds with her follow-up with orthopedics return if worsening Medical Records I reviewed the patient's medical records. No radiology studies performed this visit Discharge Plan Discharge Patient Disposition: Home Clinical Impression: Left knee sprain Qualifiers: Encounter type: initial encounter Involved ligament of knee: unspecified ligament Qualified Code(s): S83.92XA - Sprain of unspecified site of left knee, initial encounter Condition: Stable Prescriptions: New hydrocodone-acetaminophen 5-325 mg tablet 1 tab PO Q6H PRN (Reason: pain) Qty: 14 0RF No Action naproxen 500 mg tablet 500 mg PO Q12H PRN (Reason: pain) Qty: 10 0RF Discharge Orders: Discharge ED (Routine); Ordered 10/04/24 Ordered By: Horace Rodas Referrals: Antoni Knowles DO [Physician, Orthopedics] - 1-3 days Discharge Diet: Advance as tolerated Discharge Activity: Limit activity as instructed and Use walker/crutches as instructed Patient Instructions: Knee Sprain (ED), Knee Immobilizer (ED), Opioid Safety Print Language: Guatemalan Coding Level of Care Code ED Hearing Healthcare Practitioner for Titi Ramirez
[2024-10-04] MEDS: HYDROcodone-acetaminophen 5-325 mg Tablet 1 TAB PO (06:56)
--- NOTE | 2024-10-05 12:00 | DCPLANNER ---
Message sent to Ortho for follow up-
--- NOTE | 2024-10-07 09:11 | DCPLANNER ---
Message sent to Ortho -Patient presents for knee injury likely sprain or ligamentous injury her x-ray earlier showed no fracture we will place her in a knee immobilizer she is continue using crutches nonweightbearing we will prescribe her pain meds with her follow-up with orthopedics return if worsening
== END 2024-10-04 08:02 | disposition home or self-care (01) ==
PROVIDERS: Emergency Provider Emergency Medicine
DX: S83.92XA Sprain of unspecified site of left knee, initial encounter (principal); W19.XXXA Unspecified fall, initial encounter
CPT/HCPCS: 29530; 99283; J9999

== ENCOUNTER 2024-10-15 12:16 | Outpatient (CLI) | payer SELFPAY ==
--- NOTE | 2024-10-15 12:15 | MRR_ITS ---
PROCEDURE INFORMATION: Exam: MR Left Lower Extremity Joint Without Contrast, Knee Exam date and time: 10/15/2024 12:32 PM Age: 28 years old Clinical indication: Injury or trauma; Other: Injured running; Sprain or strain; Patella or knee; Left; Injury details: Lt knee pain injured chasing child on uneven ground Saturday10/10/24 TECHNIQUE: Imaging protocol: Magnetic resonance imaging of the left lower extremity joint without contrast. Exam focused on the knee. COMPARISON: CR (LOW EXM, ) 10/04/2024 12:55 AM FINDINGS: Bones/joints: There are [id number] marrow contusions involving the lateral femoral condyle and posterior aspect of the lateral tibial plateau. There is a mild marrow contusion of the medial femoral condyle. There is a [id number] knee joint effusion. Alignment of the knee is within normal limits Medial meniscus: Unremarkable. No tear. Lateral meniscus: There is a complex tear involving the posterior horn of the lateral meniscus extending into the meniscal root Anterior cruciate ligament: There is a complete tear of the proximal to mid anterior cruciate ligament. Posterior cruciate ligament: Unremarkable. No tear. Medial capsule and supporting structures: There is a full-thickness tear of the proximal fibers of the medial collateral ligament with avulsion from the attachment on the medial femoral condyle. There is increased signal intensity and irregularity of the medial patellofemoral ligament suggestive of an at least partial tear at the attachment on the medial femoral condyle Lateral capsule and supporting structures: Unremarkable. No tear. Extensor mechanism of knee: Unremarkable. No tear. Soft tissues: A small Anders's cyst is noted. MR/MR knee LT wo con* [id number] IMPRESSION: 1. Complete tear of the proximal to mid ACL with associated marrow contusions of the lateral femoral condyle and lateral tibial plateau 2. Complex tear involving the posterior horn of the lateral meniscus 3. Grade 3 tear of the proximal medial collateral ligament and at least partial tear of the medial patellofemoral ligament at its attachment on the medial femoral condyle
== END 2024-10-15 12:17 | disposition home or self-care (01) ==
PROVIDERS: Visit Provider Orthopaedic Surgery
DX: S83.512A Sprain of anterior cruciate ligament of left knee, initial encounter (principal); S83.272A Complex tear of lateral meniscus, current injury, left knee, initial encounter; S83.412A Sprain of medial collateral ligament of left knee, initial encounter; X58.XXXA Exposure to other specified factors, initial encounter
CPT/HCPCS: 73721